=== PATIENT | male | born 1985 | race Two or more races ===

== ENCOUNTER 2025-01-27 14:50 | Emergency (ER) | payer SELFPAY ==
--- NOTE | 2025-01-27 15:06 | XR_ITS ---
Examination: CT brain head without contrast. 2-D sagittal coronal reconstructions Date and time of exam:January 27, 2025, 1528 hours INDICATIONS: Headaches with slurred speech beginning 5 days ago CTDI: vol (mGy):53.8 DLP: (mGycm):1152 Technique: Multiple CT axial sections of the brain have been obtained, 5 mm slice thickness. Contrast has not been administered. 2-D sagittal, coronal reconstructions have been obtained Low dose protocols were performed. One or more of the following dose reduction techniques were used; automated exposure control, adjustment of the mA and/or KV according to patient size, use of iterative reconstruction technique. Findings: No significant ventricular enlargement. Intra-axial or extra-axial hemorrhage density is not seen. No mass effect or midline shift Basal cisterns are not remarkable. Fourth ventricle is midline. Cranial vault intact. Impression: Negative for acute hemorrhage, mass effect or midline shift As clinically warranted, brain MRI follow-up would best assess for demyelinating disease, acute ischemic change
[2025-01-27 15:19] VITALS: BP 123/81; PULSE 81; RESP 18; TEMP 37; O2SAT 95
--- NOTE | 2025-01-27 15:34 | EKG_ITS ---
[facility] Test Date: 2025-01-27 Pat Name: LISA ALLEN Department: Room: - Gender: Male [employer]: : 1985 Requested By: Chuy Thomas Order Number: [id number] Reading MD: Chuy Thomas Measurements Intervals [place] Rate: 67 P: 59 PA: 164 QRS: 66 QRSD: 97 T: 51 QT: 387 QTc: 409 Interpretive Statements SINUS RHYTHM No previous ECG available for comparison /store/S0/[id number].pdf
[2025-01-27 16:12] LABS: Basophils # (Auto) 0.1 Thou/mm3 (0.0-0.2); Basophils % (Auto) 1 % (0-2.5); Eosinophils # (Auto) 0.3 Thou/mm3 (0.0-0.5); Eosinophils % (Auto) 4 % (0-10); Hematocrit 43.5 % (41.0-53.0); Hemoglobin 15.7 g/dL (13.5-16.0); Immature Granulocytes Auto 0.02 Thou/mm3 (0.00-0.00); Lymphocytes # (Auto) 2.6 Thou/mm3 (1.0-4.8); Lymphocytes % (Auto) 39 % (10-50); Mean Corpuscular HGB Conc 36.1 g/dl (31.0-37.0); Mean Corpuscular Hemoglobin 31.0 pg (25.0-35.0); Mean Corpuscular Volume 86 fL (80-100); Monocytes # (Auto) 0.4 Thou/mm3 (0.0-0.8); Monocytes % (Auto) 6 % (0-12); Neutrophils # (Auto) 3.4 Thou/mm3 (1.8-7.7); Neutrophils % (Auto) 50 % (37-80); Nucleated Red Blood Cell # 0.00 Thou/mm3 (0.00-0.00); Nucleated Red Blood Cell % 0 /100 WBC (0); Platelet Count 216 Thou/mm3 (140-440); RDW Standard Deviation 37.1 fL (35.1-43.9); Red Blood Count 5.07 Miln/mm3 (4.50-5.90); White Blood Count 6.8 Thou/mm3 (3.8-10.6)
[2025-01-27 16:36] LABS: B-Type Natriuretic Peptide < 20 pg/mL (0-100)
[2025-01-27 16:41] LABS: Alanine Aminotransferase 41 U/L (10-49); Albumin, Serum 4.5 gm/dL (3.5-5.0); Albumin/Globulin Ratio 2.0 (1.2-2.2); Alkaline Phosphatase 80 U/L (46-116); Anion Gap 8 (7-16); Aspartate Amino Transferase 36 U/L (0-34); BUN/Creatinine Ratio 11 Ratio (12-20); Bilirubin,Total 1.1 mg/dL (0.3-1.2); Blood Urea Nitrogen 11 mg/dL (9-23); Calcium 10.2 mg/dL (8.3-10.6); Calcium (Corrected) 10.2 mg/dL (8.5-10.1); Carbon Dioxide 26.9 mMol/L (20.0-31.0); Chloride 106 mMol/L (98-107); Creatinine (Component) 1.0 mg/dL (0.6-1.3); Free T4 (Free Thyroxine) 1.24 ng/dL (0.89-1.76); Globulin 2.2 gm/dL (2.3-3.5); Glucose 95 mg/dL (74-106); Osmolality,Calculated 280 (275-295); Potassium 4.3 mMol/L (3.4-5.1); Sodium 141 mMol/L (136-145); Thyroid Stimulating Hormone 1.35 uIU/mL (0.55-4.78); Total Protein 6.7 gm/dL (5.7-8.2); Troponin I < 0.020 ng/mL (0.0-0.045); eGFR > 60 See Note
--- NOTE | 2025-01-27 16:53 | EDNOTE_ITS ---
ED Dizzyness RME/HPI General Chief Complaint: General Adult/Misc Complain Stated Complaint: PCP SENT FOR CT SCAN Time Seen by Provider: 01/27/25 15:39 Source: patient Arrival date/time: 01/27/25 14:50 39-year-old male with no known medical history presents to the emergency room with a chief complaint of dizziness x 1 week. Patient states he was seen by his primary care provider and was sent to the emergency room for CT scan of his head. Mode of arrival: ambulatory Limitations: no limitations Related Data Previous Rx's ?Medication ?Instructions ?Recorded ondansetron 4 mg disintegrating 4 mg PO Q8H PRN nausea and 11/03/19 tablet vomiting #10 tabs Allergies Allergy/AdvReac Type Severity Reaction Status Date / Time caffeine Allergy Severe Anxiety Verified 01/27/25 14:54 Review of Systems Review of Systems Systems Reviewed: All systems reviewed, normal except as documented Constitutional Constitutional: Reports system reviewed and no additional complaints, except as documented, Denies fatigue, Denies fever(s), Reports headache(s) and Reports weakness Eyes Eyes: Reports system reviewed and no additional complaints, except as documented, Denies blurry vision and Denies change in vision ENT Ears, Nose, Mouth, and Throat: Reports system reviewed and no additional complaints, except as documented, Denies otalgia, Reports headache(s), Denies nasal congestion, Denies throat swelling and Reports vertigo Cardiovascular Cardiovascular: Reports system reviewed and no additional complaints, except as documented, Denies chest pain, Denies dyspnea and Denies dyspnea on exertion Respiratory Respiratory: Reports system reviewed and no additional complaints, except as documented, Denies chest congestion, Denies cough, Denies dyspnea, Denies dyspnea on exertion and Denies wheezing Gastrointestinal Gastrointestinal: Reports system reviewed and no additional complaints, except as documented, Denies abdominal pain, Denies cramping, Denies nausea and Denies vomiting Genitourinary Genitourinary: Reports system reviewed and no additional complaints, except as documented, Denies dysuria and Denies hematuria Musculoskeletal Musculoskeletal: Reports system reviewed and no additional complaints, except as documented and Denies back pain Integumentary/Breasts Skin/Breast: Reports system reviewed and no additional complaints, except as documented and Denies wounds Neurologic Neurologic: Reports system reviewed and no additional complaints, except as documented, Reports confusion, Reports headache(s), Denies lack of coordination, Reports vertigo and Reports weakness Psychiatric Psychiatric: Reports system reviewed and no additional complaints, except as documented, Denies anxiety, Reports confusion, Denies depression, Denies paranoia, Denies suicidal ideation and Denies tactile hallucinations Endocrine Endocrine: Reports system reviewed and no additional complaints, except as documented and Denies fatigue Hematologic/Lymphatic Hematologic/Lymphatic: Reports system reviewed and no additional complaints, except as documented and Denies lymphadenopathy Allergic/Immunologic Allergic/Immunologic: Reports system reviewed and no additional complaints, e xcept as documented, Denies throat swelling, Denies urticaria and Denies wheezing Past Medical History Social History SMOKING STATUS: Never smoker ED Exam General Limitations: Present no limitations General appearance: Present alert and in no apparent distress Head Head exam: Present atraumatic, normocephalic and normal inspection Eye Eye exam: Present normal appearance, PERRL and EOMI ENT ENT exam: Present normal exam, normal oropharynx and mucous membranes moist Neck Neck exam: Present normal inspection, full ROM and trachea midline Chest Chest inspection: Present normal inspection and symmetric chest wall rise Respiratory Respiratory exam: Present normal lung sounds bilaterally Cardiovascular Cardiovascular exam: Present regular rate, normal rhythm and normal heart sounds; Absent tachycardia Abdominal Exam Abdominal exam: Present soft and normal bowel sounds Extremities Exam Extremities exam: Present normal inspection and full ROM Back Exam Back exam: Present normal inspection and full ROM Neurological Exam Neurological exam: Present alert, oriented X3, CN II-XII intact, normal gait and reflexes normal; Absent motor sensory deficit Expanded Neurological Exam Patient oriented to: Present person, place and time Speech: Present fluid speech Cranial nerves: Normal: EOM function (II, III, IV, ), facial sensation (V) and facial palsy (VII) Cerebellar function: Present normal gait Motor strength - LUE: 5/5 Motor strength - RUE: 5/5 Motor strength - LLE: 5/5 Motor strength - RLE: 5/5 Coma scale eye opening: spontaneous Coma scale motor response: obeys commands Coma scale verbal response: oriented Coma scale total: 15 Psychiatric Psychiatric exam: Present normal affect and normal mood; Absent agitated or anxious Skin Skin exam: Present warm, dry, intact and normal color Course Quality Measures none Orders Category Date Time Status EKG (ED ONLY) *Do not use* NOW Care 01/27/25 15:[address] head/brain wo con Stat Exams 01/27/25 15:06 Completed EKG (ED Only) Stat Exams 01/27/25 15:34 Draft BNP [B-Type Natriuretic Peptide] Stat Lab 01/27/25 15:46 Completed CBC Stat Lab 01/27/25 15:46 Completed CMP [Comprehensive Metabolic Panel] Stat Lab 01/27/25 15:46 Completed Free T4 (Free Thyroxine) Stat Lab 01/27/25 15:46 Completed TSH [Thyroid Stimulating Hormone] Stat Lab 01/27/25 15:46 Completed Troponin I Stat Lab 01/27/25 15:46 Completed Vital Signs Vital signs: Vital Signs Temperature 98.6 F 01/27/25 15:19 Pulse Rate 81 01/27/25 15:19 Respiratory Rate 18 01/27/25 15:19 Blood Pressure 123/81 01/27/25 15:19 Pulse Oximetry (%) 95 01/27/25 15:19 Oxygen Delivery Method Room Air 01/27/25 15:19 Dizziness MDM Narrative MDM Narrative:: 39-year-old male with no known medical history presents to the emergency room with a chief complaint of dizziness x 1 week. Patient states he was seen by his primary care provider and was sent to the emergency room for CT scan of his head. Patient is hemodynamically stable and in no apparent distress Physical examination shows a normal neurological exam. Pupils are PERRLA EOMs are intact the patient has a normal steady gait. Cranial reflexes are within normal limits. Patient has strong and regular kitchen designer. There is no slurred speech noticed and there is no unilateral numbness. Patient was sent over by primary care provider for a worsening headache, dizziness, brain fog, slurred speech that has progressively gotten worse in the last week and a half. A CT of the head and brain was completed and was negative for any acute findings. CBC CMP were within normal limits. Thyroid function is within normal limits. There is no leukocytosis or any signs of infection. Patient was discharged and educated to follow-up with primary care provider in the next 24 to 48 hours and return to the emergency room for any evidence of worsening signs or symptoms Patient data External records reviewed:: [facility] previous records Clinical information provided by:: patient Social determinants that could affect healthcare access:: none Patient has the following chronic illnesses:: No chronic illness How is presenting disease/condition affected by chronic disease/condition?: no chronic disease Evaluation data The following diagnostics were reviewed and interpreted by me:: lab results and radiology exam(s) Lab and/or radiology exams considered but not ordered:: Labs and radiology exams considered and ordered Interpretation Summary: CT of the head and brain-Findings: No significant ventricular enlargement. Intra-axial or extra-axial hemorrhage density is not seen. No mass effect or midline shift Basal cisterns are not remarkable. Fourth ventricle is midline. Cranial vault intact. Impression: Negative for acute hemorrhage, mass effect or midline shift As clinically warranted, brain MRI follow-up would best assess for demyelinating disease, acute ischemic change Medications / Prescriptions Medications or Prescriptions considered but not ordered:: No medication given Medication administrations:: No medication given Consultations Consultation(s) initiated? (list below): No Diagnosis Dizziness Differential Diagnosis: adverse reaction to drug, benign paroxysmal positional vertigo, orthostatic hypotension, vertebral basilar insufficiency, cerebrovascular accident and other (Dizziness) Most likely diagnosis given after review of the tests above:: Dizziness Admission Indicated Admission indicated?: not indicated Admission Request Was there a request for admission?: No Disposition Plan Disposition Plan: Discharge Discharge Attestation Discharge Attestation: The patient and all family members were given an opportunity to ask questions and understood the discharge instructions. Discharge instructions specifically effects, indications for sooner follow up or return to the emergency department, and the expected course of current diagnosis. Patient condition: Stable Discharge Plan Plan Patient Disposition: HOME (Self Care) Discharge Disposition comment: Stable Prescriptions/Referrals Prescriptions/Med Rec: No Action ondansetron 4 mg tablet,disintegrating 4 mg PO Q8H PRN (Reason: nausea and vomiting) Qty: 10 0RF Problem List Clinical Impression: Dizziness Patient/Caregiver Discharge Instructions Education Materials: ED Dizziness, Uncertain Cause Additional Instructions: Please follow-up with your primary care provider in the next [address] of your head and brain was completed and was negative for any acute findings. Your blood work was within normal limits Your thyroid function was within normal limits. For any evidence of worsening signs or symptoms return to the emergency room immediately Print Language: Barbadian Stand Alone Forms: Sharron Award Info., Patient Portal Info Letter PA/MAYTE Supervising Physician PA/MAYTE Supervising Physician: Dr. CELESTIN
== END 2025-01-27 17:01 | disposition home or self-care (01) ==
PROVIDERS: Nurse Practitioner Family; Emergency Provider Emergency Medicine; PCP Family Medicine
DX: R42 Dizziness and giddiness (principal); R51.9 Headache, unspecified; R47.81 Slurred speech; R94.31 Abnormal electrocardiogram [ECG] [EKG]
CPT/HCPCS: 36415; 70450; 80053; 83880; 84439; 84443; 84484; 85025; 93005; 99283